=== PATIENT | male | born 1985 | race Two or more races ===

== ENCOUNTER 2020-03-27 10:53 | Outpatient (REF) | payer OTHER, SELFPAY | END 2020-03-27 10:54 | disposition home or self-care (01) | LOC: HO.LAB 10:53 | PROVIDERS: Visit Provider Internal Medicine | DX: Z20.828 Contact with and (suspected) exposure to other viral communicable diseases (principal) | CPT/HCPCS: C9803; U0003 ==

== ENCOUNTER 2020-09-22 17:11 | Emergency (ER) | payer OTHER, SELFPAY ==
--- NOTE | ~2020-09-22 | US_ITS ---
EXAMINATION: US VENOUS ULTRASOUND WITH DOPPLER LOWER EXTREMITY, RIGHT CLINICAL INFORMATION: Pain and swelling. COMPARISON: None TECHNIQUE: Ultrasound of the deep veins is performed from the hip to the calf with compression sonography and color and pulse Doppler assessment. Spectral analysis with color-flow imaging is performed. FINDINGS: There is normal venous compression and respiratory variation and augmented flow. The visualized common femoral vein, superficial femoral vein, profunda femoral vein, popliteal vein, and the trifurcation region shows no evidence of deep venous thrombosis. There is no significant popliteal fossa cyst. If the patient's symptoms persist, followup ultrasound in 5 days 7 days might be of value to exclude proximal propagation from a non-visualized calf vein. US/US venous duplex LE RT IMPRESSION: No DVT demonstrated in the right lower extremity.
[2020-09-22 19:30] VITALS: BP 124/83; PULSE 64; RESP 16; TEMP 36.4; O2SAT 98; BMI 37.5
--- NOTE | 2020-09-22 19:39 | ED.LOWEXIN ---
HPI - Extremity Injury (Lower) General Chief Complaint: Extremity Injury, Lower Stated Complaint: leg pain Time Seen by Provider: 09/22/20 19:38 Source: patient Mode of arrival: ambulatory Limitations: no limitations History of Present Illness HPI Narrative: 35 you male c/o R calf pain since Tuesday after walking [employer] and feeling a pull since then painful to walk no other injuries MD complaint: leg injury Onset (ago): day(s) (3) Type of Injury: unknown Place: other ([facility]) Severity: moderate Relieving factors: nothing Exacerbating factors: weight bearing and movement Context: walking and other Associated symptoms: snap/pop sensation Other symptoms: none Related Data Allergies Allergy/AdvReac Type Severity Reaction Status Date / Time No Known Allergies Allergy Unverified 09/22/20 19:34 [No Known Allergies*] Review of Systems Review of Systems: Constitutional : No Weight loss, No Fever ENT/Mouth : No sore throat, No Rhinorrhea Eyes: No Eye Pain, No Swelling, No Redness Cardiovascular : No Chest Pain, No SOB Respiratory : No Cough, No Sputum Gastrointestinal : No Nausea, No Vomiting Genitourinary : No Dysuria, No Urinary Frequency Musculoskeletal : No joint pain, No Myalgias, No Joint Swelling, pos calf pain Skin : No Skin Lesions, No rash Neuro : No Weakness, No Numbness, No Dizziness, No Headache Psych : No Anxiety/Panic, No Depression PMFSH Past Medical History Attestation statement: The following information was validated with the patient. Medical History No known health problems Social History Social History (Updated 09/22/20 @ 20:13 by Lashay Benites DO) Patient Tobacco Use Status: Never used Tobacco Use of substances other than those prescribed or required for medical reasons: No Advance Directives: No Advance Directives Information Provided: No Physical Exam Vital Signs: Vital Signs: Last Vital Signs Temp 97.5 F 09/22/20 19:30 Pulse 64 09/22/20 19:30 Resp 16 09/22/20 19:30 BP 124/83 09/22/20 19:30 Pulse Ox 98 09/22/20 19:30 Body Mass Index 37.5 Appearance: Alert. Oriented X3. No acute distress. Eyes: Pupils equal, round and reactive to light. ENT: Pharynx normal. Neck: Normal inspection. Neck supple. CVS: Normal heart rate and rhythm. Pulses normal. Respiratory: No respiratory distress. Breath sounds normal. Abdomen: Soft and nontender. Skin: Skin warm and dry. Normal skin color. Normal skin turgor. Extremities:+ R calf pain, NV intact, mild swelling noted in calf area, distal NV intact, + pearl test - achilles intact Neuro: Oriented X 3. No motor deficit. No sensory deficit. Course Course Course Narrative: signed out to Dr. Ashraf pending US MDM - Extremity Injury (Lower) MDM Narrative Medical decision making narrative: 35 yo male with R calf pain post feeling a pop while walking achilles is intact - no pain with axial loading, doubt fracture, NV intact, US to evaluate for DVT at this time, aware he will need to see PCP if this worsens for MRI Discharge Plan Discharge Clinical Impression: Muscle strain
[2020-09-22] MEDS: Cyclobenzaprine HCl 10 MG TABLET PO (19:55)
[2020-09-22] MEDS: Ketorolac Tromethamine 60 MG/2 ML VIAL IM (19:56)
[2020-09-22 21:28] VITALS: RESP 16
[2020-09-22 21:30] VITALS: BP 123/83; PULSE 70; RESP 18; TEMP 37; O2SAT 97
== END 2020-09-22 22:11 | disposition home or self-care (01) ==
PROVIDERS: Emergency Provider Internal Medicine
DX: S86.911A Strain of unspecified muscle(s) and tendon(s) at lower leg level, right leg, initial encounter (principal); X58.XXXA Exposure to other specified factors, initial encounter; M79.661 Pain in right lower leg; R22.41 Localized swelling, mass and lump, right lower limb; Y93.01 Activity, walking, marching and hiking; Y92.512 Supermarket, store or market as the place of occurrence of the external cause; Y99.9 Unspecified external cause status
CPT/HCPCS: 93971; 96372; 99283; 99284; J1885

== ENCOUNTER 2021-05-20 05:21 | Emergency (ER) | payer OTHER, SELFPAY ==
[2021-05-20 06:27] VITALS: BP 114/68; PULSE 97; RESP 14; TEMP 37.2; O2SAT 95
[2021-05-20 06:28] VITALS: BP 127/59; PULSE 84; RESP 16; TEMP 37.3; O2SAT 94; BMI 38.0
--- NOTE | 2021-05-20 06:40 | ED_ITS ---
HPI - General Adult General Chief complaint: General Medical Stated complaint: Headache Time Seen by Provider: 05/20/21 06:24 Source: patient Mode of arrival: ambulatory History of Present Illness HPI narrative: 35-year-old male with history of migraines and states he has received his COVID- 19 vaccination (Moderna) and now presents with few days subjective fever, chills, sore throat but denies any dry cough and states he also has a headache. He says that this is not than normal course for his migraines but otherwise denies any shortness of breath/chest pain/palpitations. He does report some mild dizziness. Related Data Previous Rx's Medication Instructions Recorded ibuprofen 600 mg tablet 600 mg PO Q6H PRN #20 tab 09/22/20 Allergies Allergy/AdvReac Type Severity Reaction Status Date / Time No Known Allergies Allergy Unverified 09/22/20 19:34 [No Known Allergies*] Review of Systems Verdana 4l Review of Systems: Verdana 4d Pertinent positives and Verdana 4d negatives as stated in HPI 10 point review of systems is otherwise negative. Verdana 4d PMFSH Past Medical History Source: nursing notes reviewed Medical History No known health problems Social History Social History Patient Tobacco Use Status: Never used Tobacco Advance Directives: No Advance Directives Information Provided: No Physical Exam Verdana 4l Vital Signs: Verdana 4d Verdana 4d Vital Signs: Verdana 4d Verdana 4Bd Last Vital Signs Verdana 4d Health Service Coordinator New 4d Health Service Coordinator New 4d Temp 99.2 F 05/20/21 06:28 Health Service Coordinator New 4d Pulse 84 05/20/21 06:28 Health Service Coordinator New 4d Resp 16 05/20/21 06:28 BP 127/59 L 05/20/21 06:28 Pulse Ox 94 05/20/21 06:28 BMI result Body Mass Index 38.0 VITAL SIGNS: Reviewed. GENERAL: Well developed, well nourished, in no acute distress. HEAD: Normocephalic/atraumatic EYES: PERRLA, EOMI EARS: Ext canals without abnormality, TMs non-bulging and non-erythematous NOSE: Nares patent bilateral OROPHARYNX: no oral lesions noted, posterior pharynx erythematous with noted tonsillar erythema but no enlargement or exudates NECK: Supple, no adenopathy LUNGS: Normal breath sounds. No adventitious sounds or accessory muscle use. SpO2<94> CARDIOVASCULAR: Regular rate and rhythm without noted murmurs ABDOMEN: Soft, non-tender, non-distended with bowel sounds. SKIN: Inspection of the skin reveals no rashes NEUROLOGIC: Alert and oriented x 4. Strength and sensation to light touch were grossly intact x 4. Course Course Course Narrative: 35-year-old male with history and clinical presentation consistent with viral syndrome as this headache is different in character from his previous but there are no focal deficits that raise concerns for neurologic etiology. Will perform COVID testing as well as strep testing and provided combination analgesics. Signed out to Dr Ortega: f/u headache/ viral testing. Discharge Plan Discharge Clinical Impression: Viral syndrome Patient Disposition: Still a Patient Prescriptions: No Action ibuprofen 600 mg tablet 600 mg PO Q6H PRN (Reason: pain) Qty: 20 0RF
[2021-05-20 06:52] LABS: Strep A Nucleic Acid Negative (Negative)
[2021-05-20 06:54] LABS: COVID-19 Test Positive (Negative); IDNOW Serial# 55D5AD1C
[2021-05-20] MEDS: Acetaminophen 325 MG TABLET 975 MG PO (07:08)
[2021-05-20] MEDS: Ibuprofen 400 MG TABLET PO (07:08)
== END 2021-05-20 07:25 | disposition home or self-care (01) ==
PROVIDERS: Student in an Organized Health Care Education/Training Program; Emergency Provider Emergency Medicine
DX: U07.1 COVID-19 (principal); B34.9 Viral infection, unspecified; R51.9 Headache, unspecified
CPT/HCPCS: 36415; 87635; 87651; 99283; 99284

== ENCOUNTER 2024-01-04 10:04 | Emergency (ER) | payer OTHER, SELFPAY ==
--- NOTE | ~2024-01-04 | XR_ITS ---
EXAMINATION: XR RIGHT ELBOW XR RIGHT HUMERUS CLINICAL INFORMATION: Status post fall. COMPARISON: None available. TECHNIQUE: 2 views of the chest were obtained. FINDINGS: Alignment is anatomic. Joint spaces are maintained. No displaced fracture or dislocation. No significant joint effusion. Small olecranon spur. Mild posterior soft tissue swelling. XR/XR elbow RT 2V IMPRESSION: No acute abnormality. Electronically signed by: Dontrell Rosales MD 01/04/2024 12:16 PM EDT
--- NOTE | ~2024-01-04 | XR_ITS ---
EXAMINATION: XR RIGHT ELBOW XR RIGHT HUMERUS CLINICAL INFORMATION: Status post fall. COMPARISON: None available. TECHNIQUE: 2 views of the chest were obtained. FINDINGS: Alignment is anatomic. Joint spaces are maintained. No displaced fracture or dislocation. No significant joint effusion. Small olecranon spur. Mild posterior soft tissue swelling. XR/XR humerus RT IMPRESSION: No acute abnormality. Electronically signed by: Dontrell Rosales MD 01/04/2024 12:16 PM EDT
[2024-01-04 10:07] VITALS: BP 138/85; PULSE 78; RESP 18; TEMP 36.6; O2SAT 96; BMI 36.0
--- NOTE | 2024-01-04 12:10 | ED_ITS ---
HPI - Extremity Problem General Chief complaint: Extremity Injury, Upper Stated complaint: r arm inj Time Seen by Provider: 01/04/24 12:10 Source: patient Mode of arrival: ambulatory Limitations: no limitations History of Present Illness ED Provider: Corine Murray PA-C HPI Narrative: Patient is a 38 year old assigned male at with no reported medical history presenting to the emergency department today with right elbow and upper arm pain. Patient states that he was working on the roof when he fell down onto the roof. Patient states that his right elbow hurts and it radiates into his upper arm. Patient states that it is worse when he raises his right arm. Patient denies any dizziness, lightheadedness, abdominal pain, nausea, vomiting, fever, chills, blurry vision, double vision, loss of vision, chest pain, difficulty breathing, shortness of breath, back pain, night sweats, pain with urination, increased urinary frequency, increased urinary urgency, blood in his urine or s tool, syncope or a near syncopal episode, bowel incontinence, bladder incontinence, or any other complaints at this time. MD Complaint: extremity pain Location: right and upper extremity Relieving factors: immobilization Exacerbating factors: range of motion Associated symptoms: denies other symptoms Related Data Previous Rx's ?Medication ?Instructions ?Recorded ibuprofen 600 mg tablet 600 mg PO Q6H PRN pain #20 tabs 09/22/20 Allergies Allergy/AdvReac Type Severity Reaction Status Date / Time No Known Allergies Allergy Verified 01/04/24 10:09 [No Known Allergies*] Review of Systems Constitutional: Constitutional: Reports no additional constitutional complaints, Denies chills, Denies fever(s) and Denies night sweats Eyes: Eyes: Reports no additional eye complaints, Denies blurry vision, Denies change in vision, Denies diplopia, Denies eye discharge, Denies loss of vision and Denies eye pain ENT: Denies dizziness Cardiovascular: Cardiovascular: Reports no additional cardiovascular complaints, Denies chest pain, Denies lightheadedness, Denies Loss of Consciousness and Denies dyspnea Respiratory: Respiratory: Reports no additional respiratory complaints and Denies dyspnea Gastrointestinal: Gastrointestinal: Reports no additional gastrointestinal complaints, Denies abdominal pain, Denies melena, Denies hematochezia, Denies change in bowel habits and Denies change in stool character Genitourinary: Genitourinary: Reports no additional male genitourinary complaints, Denies hematuria, Denies oliguria, Denies difficulty urinating, Denies dysuria, Denies urinary frequency, Denies urinary hesitancy, Denies urinary incontinence and Denies urinary urgency Musculoskeletal: Musculoskeletal: Reports no additional musculoskeletal complaints, Denies numbness and Denies tingling Comments: right elbow pain Neurologic: Denies dizziness, Denies loss of vision, Denies numbness and Denies tingling Psychiatric: Psychiatric: Reports no additional psychiatric complaints Endocrine: Endocrine: Reports no additional endocrine complaints Hematologic/Lymphatic: Hematologic/Lymphatic: Reports no additional hematologic/lymphatic complaints Allergic/Immunologic: Allergic/Immunologic: Reports no additional allergic/im munologic complaints [facility] Past Medical History Attestation statement: The following information was validated with the patient. Source: old records reviewed and nursing notes reviewed Medical History No known health problems Social History Social History Patient Tobacco Use Status: Never used Tobacco Advance Directives: No Advance Directives Information Provided: No Do you have a plan to hurt others: No Plan Physical Exam Vital Signs: Vital Signs: Last Vital Signs Temp 97.9 F 01/04/24 12:33 Pulse 78 01/04/24 12:33 Resp 18 01/04/24 12:33 BP 138/85 01/04/24 12:33 Pulse Ox 96 01/04/24 12:33 O2 Del Method Room Air 01/04/24 12:33 BMI result Body Mass Index 36.0 Const: General: cooperative, no acute distress, alert and awake Nutritional Appearance: well nourished Orientation/consciousness: patient oriented x3 Limitations: no limitations HEENT: Head: Yes normal to inspection and Yes atraumatic Ears: hearing grossly normal bilaterally and external ears normal General nose exam: Normal external nose present, no nasal discharge noted and no epistaxis Face and sinus: Yes normal facial exam, No abrasion and No laceration Mouth: Normal oral and palatal mucosa present, no drooling and no muffled voice Eyes: General: appearance normal, both eyes and all related structures Periorbital: periorbital findings normal Eyelids: Yes eyelids normal Conjunctivae: conjunctivae normal Pupils: Equal, round and reactive pupils present EOM: EOMs intact bilaterally Neck: Neck: Yes normal visual inspection, Yes full ROM and Yes no lymphadenopathy Chest: Chest palpation & inspection: normal inspection of the chest Resp: Effort & Inspection: normal respiratory effort and able to speak in complete sentences GI: Inspection: Yes normal to inspection Neuro: General: patient oriented x3 and moves all extremities Cranial nerves: Yes Equal, round and reactive pupils present Cognition (Neuro): normal cognition Extrem: Other: pain with right elbow and shoulder ROM General: Yes normal to inspection, Yes full ROM and Yes capillary refill normal Psych: Appearance: grossly normal Mental Status: mental status grossly normal Affect: normal affect Attitude: cooperative Thought process: Normal thought process present Thought content: Normal thought content present Insight: Good insight present (Psych) Medical Decision Making Medical Decision Making MDM Narrative: Patient is a 38 year old assigned male at with no reported medical history presenting to the emergency department today with right elbow and upper extremity pain. Patient's physical exam showed pain with right elbow and upper arm ROM - possible tricep injury. Patient's right elbow and humerus x-rays showed no acute process. I explained my physical exam findings as well as all test results to the patient. I answered all questions asked by the patient. I stressed the importance of the patient taking his medication as directed (either prescribed or as the over the counter packaging recommends). I stressed the importance of the patient following up with his primary care provider and an orthopedic provider. I stressed the importance of the patient returning to the emergency department immediately if his symptoms were to worsen or if he were to develop any dizziness, shortness of breath, difficulty breathing, chest pain, blurry vision, loss of vision, nausea, vomiting, abdominal pain, fever, chills, back pain, or any other complaints. Patient verbalized agreement and understanding with this treatment plan and discharge. Differential Diagnosis Differential Diagnoses: The differential diagnosis associated with the presentation includes Elbow sprain Elbow pain Elbow strain Rotator cuff injury Tricep injury Admission/Observation Consideration of admission/observation: Escalation of care including admission/observation considered Patient would have been admitted to the hospital had his work up had any findings where hospital admission was appropriate and his clinical presentation warranted hospital admission. Independent Interpretation I performed an independent interpretation of an: Plain X-Ray Interpretation: My interpretation is in agreement with the radiologist's impression of these imaging studies. EXAMINATION: XR RIGHT ELBOW XR RIGHT HUMERUS CLINICAL INFORMATION: Status post fall. COMPARISON: None available. TECHNIQUE: 2 views of the chest were obtained. FINDINGS: Alignment is anatomic. Joint spaces are maintained. No displaced fracture or dislocation. No significant joint effusion. Small olecranon spur. Mild posterior soft tissue swelling. XR/XR humerus RT IMPRESSION: No acute abnormality. Electronically signed by: Dontrell Rosales MD 01/04/2024 12:16 PM EDT RP Dictated By: Alyssa Rosales MD Signed By: Electronically signed by Alyssa Rosales MD 01/04/24 1216 Radiology Impression Discussion of test interpretation with radiology: I have reviewed the ra diologist's reading. Discharge Plan Discharge Clinical Impression: Elbow sprain, Contusion of elbow, Fall Patient Disposition: Home, Self-Care Instructions: Contusion in Adults (ED), Elbow Sprain (ED), R.I.C.E. Treatment (ED), Fall Prevention (ED) Additional Instructions: Follow up with your primary care provider, an orthopedic provider, and work connection. Return to the emergency department immediately if your symptoms worsen or if you develop any dizziness, shortness of breath, difficulty breathing, chest pain, blurry vision, loss of vision, nausea, vomiting, abdominal pain, fever, chills, back pain, or any other complaints. Prescriptions: No Action ibuprofen 600 mg tablet 600 mg PO Q6H PRN (Reason: pain) Qty: 20 0RF Referrals: [facility] [Provider Group] (Call to establish and follow up with a primary care provider. If you already have a primary care provider, please follow up with them.) [facility] [Provider Group] (Call to establish and follow up with a primary care provider. If you already have a primary care provider, please follow up with them.) [facility] [Provider Group] (Call to establish and follow up with a primary care provider. If you already have a primary care provider, please follow up with them.) [facility] [Provider Group] (Call to establish and follow up with an orthopedic provider.) [facility] [Provider Group] (Given this was a work place injury, you should follow up with work connection.) Stand Alone Forms: Work/School Release Interventions: ED Discharge Assessment Last Done: 01/04/24 12:33 Discharge Date/Time: 01/04/24 12:33 Print Language: Romansh
[2024-01-04 12:33] VITALS: BP 138/85; PULSE 78; RESP 18; TEMP 36.6; O2SAT 96
== END 2024-01-04 12:33 | disposition home or self-care (01) ==
PROVIDERS: Emergency Provider Emergency Medicine Emergency Medical Services
DX: S53.401A Unspecified sprain of right elbow, initial encounter (principal); W18.39XA Other fall on same level, initial encounter; Y93.89 Activity, other specified; Y92.89 Other specified places as the place of occurrence of the external cause; Y99.0 Civilian activity done for income or pay
CPT/HCPCS: 73060; 73070; 99282; 99283

== ENCOUNTER 2024-01-26 14:47 | Outpatient (AMB) | payer OTHER, SELFPAY ==
--- NOTE | 2024-01-26 14:51 | A.OFFVIS_ITS ---
Vital Signs 01/26/24 14:56 Height 5 ft 7 in Weight 230 lb BMI 36.0 Intake Visit Reasons: ED f/u rt Elbow sprain Intake Note: All a 38 year old male who presents today for an ER follow to evaluate a WC injury to his right elbow, DOI 01/04/24. Patient reports while on a metal roof at work he fell hitting his elbow on a ridge. He presented to [facility] ER where xrays were taken and referred to orthopedics. He has a visible lump and complains of pain with certain twisting motions. He has numbness and tingling with sleeping. He is requesting an MRI. Patient is currently working light duty at work. Allergies No Known Allergies [No Known Allergies*] Allergy (Verified 01/26/24 14:55) Medication List - Last Reconciled 01/26/24 by Tripp Hamilton PA-C No Known Home Meds HPI HPI ED f/u rt Elbow sprain: Details: 38-year-old male who presents to the office today for an ED follow-up of right elbow work injury, 01/04/24. He reports he was on a metal roof at work when he fell hitting his elbow on a ridge. He was seen at ER where x-rays were performed and he was referred to our office. He reports he has a visible lump and pain in his elbow that comes with bending as well as with certain motions. He also experiences numbness and tingling with sleeping. He has been working light duty at work. 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 Review of Systems Const All systems reviewed & are unremarkable except as noted in HPI and below Physical Exam Vital Signs: BMI result Body Mass Index 36.0 Const General: cooperative, healthy appearing, comfortable, no acute distress, well developed and alert Orientation/consciousness: patient oriented x3 HEENT Head: Yes normal to inspection, Yes normocephalic and Yes atraumatic Eyes General: appearance normal, both eyes and all related structures Resp Effort & Inspection: normal respiratory effort and able to speak in complete sentences Cardio Rate: regular rate Peripheral pulses: Peripheral pulses 2+ throughout GI Palpation (GI): Soft to palpation Skin Lesions: no lesions Rashes: no rashes Neuro General: patient oriented x3 Extrem Other: Right elbow: Normal to inspection. He has full flexion but with extension he has discomfort along the triceps. No pain with supination or pronation. He has significant tenderness along the triceps tendon and weakness with activation of triceps. NVI. Results Reviewed Results Reviewed: XR elbow RT 2V 01/04/24 IMPRESSION: No acute abnormality. Assessment & Plan Assessment & Plan (1) Other injury of muscle, fascia and tendon of triceps, right arm, initial encounter: Code(s): S46.391A - Other injury of muscle, fascia and tendon of triceps, right arm, initial encounter Category: Medical Plan An MRI of the right elbow was ordered to further evaluate the triceps and surrounding structures. He will continue light duty at work and once the scan is complete, we will contact him to determine the next step in his treatment. All questions were answered today. Orders: Orders MR elbow RT wo con Today S46.391A - Other injury of muscle, fascia and tendon of triceps, right arm, initial encounter, S50.00XA - Contusion of unspecified el bow, initial encounter Medications: Discontinued ibuprofen Discontinued Reason: Patient no longer taking 600 mg PO Q6H PRN 20 tabs 0RF pain Patient Instructions: Scribed for Tripp Hamilton PA-C, by Dorian Meneses medical engineer, on 01/26/2024 at 3:00 PM EST.? I, Tripp Hamilton PA-C, have personally reviewed and agree with the information entered by the scribe. Coding Level of Care Code New Pt Level 3 (27206) Complex EM visit Add On G2211 Diagnoses Other injury of muscle, fascia and tendon of triceps, right arm, initial encounter S46.391A
[2024-01-26 14:56] VITALS: BMI 36.0
== END 2024-01-26 15:31 | disposition home or self-care (01) ==
PROVIDERS: Visit Provider Physician Assistant
DX: S46.391A Other injury of muscle, fascia and tendon of triceps, right arm, initial encounter (principal)
CPT/HCPCS: 99203; G2211

== ENCOUNTER → 2024-01-26 14:47 | Outpatient (BNVA) | payer OTHER, SELFPAY | PROVIDERS: Visit Provider Physician Assistant | DX: S46.391A Other injury of muscle, fascia and tendon of triceps, right arm, initial encounter (principal) | CPT/HCPCS: 99202 ==

== ENCOUNTER 2024-02-03 19:27 | Outpatient (REF) | payer OTHER, SELFPAY ==
--- NOTE | ~2024-02-03 | MR_ITS ---
EXAMINATION: MR ELBOW WITHOUT CONTRAST, RIGHT CLINICAL INFORMATION: Pain with weightbearing and throwing. Elbow contusion. COMPARISON: Right elbow radiographs dated 01/04/2024. TECHNIQUE: MRI of the elbow was performed using routine sequences on a high-field scanner. FINDINGS: Ulnar Collateral Ligament: Mildly increased T2 signal within the proximal aspect of the ulnar collateral ligament with minimally increased adjacent T2 signal, which could represent normal variation versus a grade 1 sprain. Common Flexor Tendon: Minimally increased T2 signal associated with common flexor tendon, consistent with minimal tendinosis. No tendon tear. Radial Collateral Ligament: Intact. Common Extensor Tendon: Intact. Biceps/Triceps Tendon: Thickening and heterogeneity with increased T2 signal involving the distal 1.7 cm of the biceps tendon, consistent with tendinosis. There is partial thickness undersurface partial tearing measuring 1.1 cm involving approximately 50% of the tendon thickness. No full-thickness transverse tendon tear or tendon retraction. The brachialis tendon is intact. Full-thickness partial tear involving the peripheral aspect of the distal triceps tendon (lateral and longitudinal head) with retraction of the torn tendon fibers. The resultant tendon gap measures up to 4.3 cm with adjacent edema and fluid extending proximally beyond the image [id number] along the myotendinous junction. Overlying soft tissue swelling. Articular Cartilage/Bone: No acute fracture or dislocation. Intact articular cartilage. No marrow edema. No osteochondral lesion. Ulnar Nerve: Intact. Joint Fluid/Soft Tissues: Dorsal subcutaneous edema. No significant joint effusion. MR/MR elbow RT wo con IMPRESSION: 1. Full-thickness partial tear involving the peripheral aspect of the distal triceps tendon (lateral and longitudinal head) with retraction of the torn tendon fibers measuring up to 4.3 cm. Adjacent edema and fluid extending proximally beyond the image [id number] along the myotendinous junction. 2. Distal biceps tendinosis with undersurface partial tearing measuring 1.1 cm involving approximately 50% of the tendon thickness. No full-thickness transverse tendon tear or tendon retraction. 3. Minimal common flexor tendinosis without a measurable tendon tear. 4. Possible grade 1 sprain of the ulnar collateral ligament. 5. Dorsal subcutaneous edema. Electronically signed by: Peter Smith MD 02/03/2024 08:59 PM EDT
== END 2024-02-03 19:28 | disposition home or self-care (01) ==
LOC: HO.MRI 19:27
PROVIDERS: Visit Provider Physician Assistant
DX: S50.00XA Contusion of unspecified elbow, initial encounter (principal); S46.391A Other injury of muscle, fascia and tendon of triceps, right arm, initial encounter
CPT/HCPCS: 73221

== ENCOUNTER 2024-02-13 14:07 | Outpatient (AMB) | payer OTHER, SELFPAY ==
--- NOTE | 2024-02-13 14:24 | MHC.OFFVIS ---
Vital Signs 02/13/24 14:26 Height 5 ft 7 in Weight 230 lb BMI 36.0 Intake Visit Reasons: EP, R elbow MRI follow up Intake Note: All is a 38 year old righto hand dominant male who presents to the office today for right elbow MRI follow up. Patient reports that he is doing well and only has pain with weighted flexion of the arm. Allergies No Known Allergies [No Known Allergies*] Allergy (Verified 01/26/24 14:55) HPI HPI EP, R elbow MRI follow up: Details: 38-year-old right hand dominant male who returns to the office today for an MRI review of right elbow. He states he has pain and weakness that comes with weighted flexion of the arm which is significantly impacting his ability to perform him work and daily activities. 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 Review of Systems Const All systems reviewed & are unremarkable except as noted in HPI and below Physical Exam Vital Signs: BMI result Body Mass Index 36.0 Const General: cooperative, healthy appearing, comfortable, no acute distress, well developed and alert Orientation/consciousness: patient oriented x3 HEENT Head: Yes normal to inspection, Yes normocephalic and Yes atraumatic Eyes General: appearance normal, both eyes and all related structures Resp Effort & Inspection: normal respiratory effort and able to speak in complete sentences Cardio Rate: regular rate Peripheral pulses: Peripheral pulses 2+ throughout GI Palpation (GI): Soft to palpation Skin Lesions: no lesions Rashes: no rashes Neuro General: patient oriented x3 Extrem Other: Right elbow: Normal to inspection. He has full flexion but with extension he has discomfort along the triceps. No pain with supination or pronation. He has significant tenderness along the triceps tendon and weakness with activation of triceps. NVI. Results Reviewed Results Reviewed: MR elbow RT wo con IMPRESSION: 1. Full-thickness partial tear involving the peripheral aspect of the distal triceps tendon (lateral and longitudinal head) with retraction of the torn tendon fibers measuring up to 4.3 cm. Adjacent edema and fluid extending proximally beyond the image [id number] along the myotendinous junction. 2. Distal biceps tendinosis with undersurface partial tearing measuring 1.1 cm involving approximately 50% of the tendon thickness. No full-thickness transverse tendon tear or tendon retraction. 3. Minimal common flexor tendinosis without a measurable tendon tear. 4. Possible grade 1 sprain of the ulnar collateral ligament. 5. Dorsal subcutaneous edema Assessment & Plan Assessment & Plan (1) Rupture of right triceps tendon: Code(s): S46.311A - Strain of muscle, fascia and tendon of triceps, right arm, initial encounter Category: Medical Plan I reviewed the case with Dr. Rojas who was available to see the patient with me today, we explained the extent of the injury and options to the patient which includes repair of the triceps tendon. I did explain to him that this takes anywhere from 6-12 weeks to fully recover from as there needs to be a period of immobilization and then potential physical therapy. It is ideal to perform surgery within the next few days as the injury is already a week out and we want to prevent further retraction or scarring which could jeopardize the success of the surgery. I discussed with him the risks, benefits and alternatives to the procedure.? Risks including, but not limited to infection, re-rupture of the tendon, stiffness, chronic pain.? He does understand all this and would like to proceed with right triceps tendon repair with Dr. Rojas.? He will be booked accordingly. Patient Instructions: Scribed for Tripp Hamilotn PA-C, by Dorian Meneses medical appliance maker, on 02/13/2024 at 2:15 PM EST.? I, Tripp Hamilton PA-C, have personally reviewed and agree with the information entered by the scribe. Coding Level of Care Code Est Pt Level 4 (49895) Complex EM visit Add On G2211 Diagnoses Rupture of right triceps tendon S46.311A
[2024-02-13 14:26] VITALS: BMI 36.0
== END 2024-02-13 16:08 | disposition home or self-care (01) ==
PROVIDERS: Visit Provider Physician Assistant
DX: S46.311A Strain of muscle, fascia and tendon of triceps, right arm, initial encounter (principal)
CPT/HCPCS: 99214; G2211

== ENCOUNTER → 2024-02-13 14:07 | Outpatient (BNVA) | payer OTHER, SELFPAY | PROVIDERS: Visit Provider Physician Assistant | DX: S46.311A Strain of muscle, fascia and tendon of triceps, right arm, initial encounter (principal) | CPT/HCPCS: 99212 ==

== ENCOUNTER 2024-02-21 07:58 | Day surgery (SDC) | payer OTHER, SELFPAY ==
--- NOTE | 2024-02-20 08:45 | HO.ANESPROP2 ---
Documented by User: Nancy Bell NP 02/20/24 08:45 HPI - Anesthesia Eval Consult details Narrative: 38yo M for Right Tricep Tendon Repair with Collegen Patch PMFSH Active Problems Active Problems: All Active Problems Rupture of right triceps tendon (Acute) Other injury of muscle, fascia and tendon of triceps, right arm, initial encounter (Acute) Past Medical History Medical History No known health problems Surgical History Surgical History [place] teeth extracted Social History Social History Patient Tobacco Use Status: Never used Tobacco Have you been hit, kicked, punched, or otherwise hurt by someone within the past year? 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 Meds Allergies Allergy/AdvReac Type Severity Reaction Status Date / Time No Known Allergies Allergy Verified 01/26/24 14:55 [No Known Allergies*] Home Medications ?Medication ?Instructions ?Recorded ?Confirmed ?Last Taken ?Type No Known Home Meds 01/26/24 02/21/24 Unknown History Assessment and Plan Assessment Anesthesia Assessment: Chart Reviewed Documented by User: Rose Copeland MD 02/21/24 10:45 PMFSH Active Problems Active Problems: All Active Problems Rupture of right triceps tendon (Acute) Other injury of muscle, fascia and tendon of triceps, right arm, initial encounter (Acute) Increased BMI Snores but no diagnosis of HIREN Past Medical History Medical History No known health problems Family History Family history of problems with anesthesia: No Surgical History Surgical History [place] teeth extracted History of Problems with Anesthesia: No Social History Social History Patient Tobacco Use Status: Never used Tobacco Have you been hit, kicked, punched, or otherwise hurt by someone within the past year? 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 Denies broken or loose teeth) Heart: RRR Lungs: CTAB Assessment and Plan Assessment Anesthesia Assessment: Anesthesia Plan Discussed and Chart Reviewed Final Anesthetic Review Family History of Problems with Anesthesia: No History of Problems with Anesthesia: No NPO: Yes ASA Class: II Final Preanesthetic Review: No Changes in Pt Med Stat, Meds/Allgs Chart Reviewed, Consent Obtained/Reviewed and Anes Risks/Benef Reviewed Patient Risk: Low Procedure Risk: Low Assessment/Block/Sedation in SS: Assess/Block/Sedation-SS Anesthetic Plan Anesthetic Plan: GA and Other (Brachial plexus nerve block) Disposition: Standard PACU
[2024-02-21] VITALS (8 sets, daily range): BP systolic 117–147; BP diastolic 69–93; PULSE 79–88; RESP 10–20; TEMP 36.1–36.9; O2SAT 93–97; BMI 36.1; BMI 38.3
[2024-02-21] MEDS: Lactated Ringers 1,000 ML 100 ML IVCONT (08:35)
--- NOTE | 2024-02-21 09:24 | MHC.SHP ---
Pre-Procedural Eval Section A - 24 Hr Update-Section A only Date of Service: 02/21/24 The patient is an INPATIENT: No Changes since office visit: No Cold of Flu in the past 2 weeks, No New Medical Problems, No Changes in Medication and No Patient answered all questions The patient has been examined within 24 hours of the surgical procedure. The History & Physical has been completed within 30 days and I have reviewed it.: Yes Section B - Complete if H&P > 30 days Chief Complaint: Laceration of muscle, fascia and tendon of triceps Allergies: Allergies Allergy/AdvReac Type Severity Reaction Status Date / Time No Known Allergies Allergy Verified 01/26/24 14:55 [No Known Allergies*] Plan I have reviewed the history and physical and performed a pertinent physical examination on my patient. No changes have occurred unless specified. Time Spent With Patient Time: Total time managing care of this patient today ____ minutes.
--- NOTE | 2024-02-21 14:06 | PM.OP ---
Brief Operative Note Date of Service: 02/21/24 Pre-op diagnosis: Right triceps rupture Post-op diagnosis: same Procedure: Right triceps repair Implants: Ventura and Nephew Q-fix 2.8 all suture single loaded anchor x 2 Footprint, 3.5 x 2 Regeneten large bioinductive implant x 1 Surgeon: Adalberto Rojas MD Anesthesia: GETA and regional Was an Patient Access Manager used for this Procedure?: Yes Patient Access Manager: Tripp Hamilton Estimated blood loss (mL): 100 IV fluids (mL): 1,000 Pathology: none sent Condition: stable Disposition: PACU
--- NOTE | 2024-02-24 16:27 | W.PM.OPN ---
Operative Note Operative Note Date of Service: 02/21/24 Narrative: Date of Service: 02/21/24 Pre-op diagnosis: Right triceps rupture Post-op diagnosis: same Procedure: Right triceps repair Implants: Ventura and Nephew Q-fix 2.8 all suture single loaded anchor x 2 Footprint, 3.5 x 2 Regeneten large bioinductive implant x 1 Surgeon: Adalberto Rojas MD Anesthesia: GETA and regional Was an Water Resources Technical Officer used for this Procedure?: Yes Water Resources Technical Officer: Tripp Hamilton Estimated blood loss (mL): 100 IV fluids (mL): 1,000 Pathology: none sent Condition: stable Disposition: PACU Patient was brought to the operating room and placed prone on the surgical table. He was prepped and draped in standard sterile fashion and a time out was called to identify proper site, proper procedure and IV antibiotics per weight were administered. We began by making a direct posterior incision over the tip of the olecranon extending proximally 5 cm. I dissected down to the triceps fascia and were encountered significant scarring. There was a palpable retracted portion of his triceps tendon. This was identified and tagged. I was able to pull on this retracted tendon and it had some excursion although was tight. I released fascia and scar tissue proximally and was able to nearly recreate normal attachment site of the triceps. This is a high-grade partial tear. There were portions of the triceps that remained intact mostly medial to the retracted portion. I used a rongeur to debride the olecranon insertion site down to bleeding bone. I then placed 2 Q fix all suture single loaded anchors into the olecranon. One limb of each of these was then stitched in a locking Krackow configuration of proximally and then back through the retracted and torn triceps. I then was able to reapproximate the normal anatomy and brought the triceps down to the debrided bony bed. This was somewhat tight in flexion and so I released it slightly allowing for the patient to obtain full flexion. Once this was done I oversewed the remaining medial and lateral triceps fibers to the repaired triceps. This was done using a 2-0 FiberWire. I then took the elbow through range of motion I was satisfied that I had 0-125 degrees of motion. I then placed a large Regeneten collagen bio inductive implant over the site of injury and subsequent repair. This was held in place with a 2 0 Vicryl suture. I then irrigated and closed with absorbable suture and elizabeth. Sterile dressings were applied. Patient was placed into a sling and approximately 70 degrees of flexion. He was then extubated and brought to recovery in stable condition. There were no known complications.
== END 2024-02-21 16:27 | disposition home or self-care (01) ==
PROVIDERS: Visit Provider Orthopaedic Surgery
PROC: (CPT 24341; principal; 2024-02-21 11:30)
DX: S46.311A Strain of muscle, fascia and tendon of triceps, right arm, initial encounter (principal); X58.XXXA Exposure to other specified factors, initial encounter; Y93.9 Activity, unspecified; Y92.69 Other specified industrial and construction area as the place of occurrence of the external cause; Y99.0 Civilian activity done for income or pay
CPT/HCPCS: 24342; C1713; C1763; J0131; J0665; J0690; J1100; J1171; J2003; J2250; J2405; J2704; J2795; J3010

== ENCOUNTER → 2024-02-21 07:58 | Outpatient (BNV) | payer OTHER, SELFPAY | PROVIDERS: Visit Provider Orthopaedic Surgery | DX: S46.311A Strain of muscle, fascia and tendon of triceps, right arm, initial encounter (principal) | CPT/HCPCS: 24342 ==

== ENCOUNTER 2024-03-01 13:08 | Outpatient (AMB) | payer OTHER, SELFPAY ==
--- NOTE | 2024-03-01 13:13 | A.OFFVIS_ITS ---
Intake Visit Reasons: PO RT tricep tendon repair 02/21/24 NE Intake Note: Todd a 38 year old male who presents today for a post operative visit s/p RT tricep tendon repair 02/21/24 NE. Patient reports he is doing well, he has no pain at the moment. However, he will have an increase of pain with certain movem ents of his arm. Allergies No Known Allergies [No Known Allergies*] Allergy (Verified 03/01/24 13:18) Medication List - Last Reconciled 03/01/24 by Tripp Hamilton PA-C oxycodone 5 mg PO Q4H PRN 7 days HPI HPI PO RT tricep tendon repair 02/21/24 NE: Details: 38-year-old male who returns to the office today for post-op right triceps tendon repair, 02/21/[address] Rojas. He states he has pain with certain arm movement however he is doing well otherwise. He is doing well overall and has no concerns today. 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 He has mild swelling. No drainage. He can flex to 40 degrees, extension to neutral. NVI. Assessment & Plan Assessment & Plan (1) Rupture of right triceps tendon: Code(s): S46.311A - Strain of muscle, fascia and tendon of triceps, right arm, initial encounter Category: Medical Plan He was fit for an elbow ROM brace in the office today. He should wear the brace at all times. He can remove the brace for resting and hygiene. Brace locked in 40 degrees flexion, extension to neutral. He will avoid any type of lifting, pushing, pulling, or carrying greater than a cellphone on the right hand. He will see me back in 1 week for staple removal, sooner if needed. Patient Instructions: Scribed for Tripp Hamilton PA-C, by Dorian Meneses resident medical officer, on 03/01/2024 at 1:30 PM EST.? I, Tripp Hamilton PA-C, have personally reviewed and agree with the information entered by the scribe. Coding Level of Care Code Global (56242) Diagnoses Rupture of right triceps tendon S46.311A
== END 2024-03-01 13:47 | disposition home or self-care (01) ==
LOC: HO.HOS 13:09
PROVIDERS: Visit Provider Physician Assistant
DX: S46.311A Strain of muscle, fascia and tendon of triceps, right arm, initial encounter (principal)
CPT/HCPCS: 99024

== ENCOUNTER → 2024-03-01 13:08 | Outpatient (BNVA) | payer OTHER, SELFPAY | PROVIDERS: Visit Provider Physician Assistant | DX: S46.311D Strain of muscle, fascia and tendon of triceps, right arm, subsequent encounter (principal) | CPT/HCPCS: 99212 ==

== ENCOUNTER 2024-03-08 13:07 | Outpatient (AMB) | payer OTHER, SELFPAY ==
--- NOTE | 2024-03-08 13:26 | MHC.OFFVIS ---
Intake Visit Reasons: PO staple removal Rt Tricep tendon repair 02/21/24 Intake Note: All a 38 year old male who presents today for staple removal s/p RT Tricep tendon repair, DOS 02/21/24. Allergies No Known Allergies [No Known Allergies*] Allergy (Verified 03/08/24 13:26) HPI HPI PO staple removal Rt Tricep tendon repair 02/21/24: Details: 38-year-old male who returns to the office today for post-op right triceps tendon repair, 02/21/24. He reports he has improvement in his swelling however he continues to have limited ROM in his arm. 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 He has mild swelling. No drainage. He can flex to 40 degrees, extension to neutral. NVI. Assessment & Plan Assessment & Plan (1) Rupture of right triceps tendon: Code(s): S46.311A - Strain of muscle, fascia and tendon of triceps, right arm, initial encounter Category: Medical Plan [place] removed today, steri strips applied. An order was placed for occupational therapy to work on active assisted ROM with therapist. He should increase flexion 5 degrees every week for 4 weeks and then increase 10 degrees every week till he reaches full ROM. No lifting at this time. He will remain out of work untill his next appointment. Ideally, the time he should be out of work is 3 months for full recovery. He will see us back in 4 weeks, sooner if needed. Orders: Orders OT Evaluation and Treatment Today S46.311A - Strain of muscle, fascia and tendon of triceps, right arm, initial encounter Patient Instructions: Scribed for Joe-Katlin Hamilton PA-C, by Dorian Meneses nurses medical assistants phlebotomists, on 03/08/2024 at 1:30 PM EST.? I, Tripp Hamilton PA-C, have personally reviewed and agree with the information entered by the scribe. Coding Level of Care Code Global (65215) Diagnoses Rupture of right triceps tendon S46.311A
== END 2024-03-08 14:17 | disposition home or self-care (01) ==
PROVIDERS: Visit Provider Physician Assistant
DX: S46.311A Strain of muscle, fascia and tendon of triceps, right arm, initial encounter (principal)
CPT/HCPCS: 99024

== ENCOUNTER → 2024-03-08 13:07 | Outpatient (BNVA) | payer OTHER, SELFPAY | PROVIDERS: Visit Provider Physician Assistant | DX: S46.311D Strain of muscle, fascia and tendon of triceps, right arm, subsequent encounter (principal) | CPT/HCPCS: 99212 ==

== ENCOUNTER 2024-04-02 14:04 | Outpatient (AMB) | payer OTHER, SELFPAY ==
--- NOTE | 2024-04-02 14:07 | A.OFFVIS_ITS ---
Vital Signs 04/02/24 14:12 Height 5 ft 7 in Weight 230 lb BMI 36.0 Intake Visit Reasons: PO 4wk f/u Rt tricep tendon repair 02/21/24 Intake Note: All a 38 year old male who presents today for his 4 week P/O right Tricep tendon repair, DOS 02/21/24. States he is doing very well,has no pain and is improving working with P.T. Allergies No Known Allergies [No Known Allergies*] Allergy (Verified 04/02/24 14:12) Medication List - Last Reconciled 04/02/24 by Tripp Hamilton PA-C No Known Home Meds HPI HPI PO 4wk f/u Rt tricep tendon repair 02/21/24: Details: 38-year-old male who returns to the office today for post-op right tricep tendon repair, 02/21/24. He states he has no pain and is doing well overall. He has been working on physical therapy as instructed. He has no concerns today. 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 He has full ROM of elbow without pain. He can supinate or pronate without pain. NVI. Assessment & Plan Assessment & Plan (1) Rupture of right triceps tendon: Code(s): S46.311A - Strain of muscle, fascia and tendon of triceps, right arm, initial encounter Category: Medical Plan He will continue working with physical therapy to maintain his ROM and increase strength. He can discontinue the brace when at home and sleeping. He can wear the brace if he is at work or outside in bad weather to protect himself from potentially falling. He will continue with current work light restriction and see me back in 6 weeks, sooner if needed. Patient Instructions: Scribed for Tripp Hamilton PA-C, by Dorian Meneses medical appointment clerk, on 04/02/2024 at 2:15 PM EST.? I, Tripp Hamilton PA-C, have personally reviewed and agree with the information entered by the scribe. Coding Level of Care Code Global (90267) Diagnoses Rupture of right triceps tendon S46.311A
[2024-04-02 14:12] VITALS: BMI 36.0
== END 2024-04-02 14:23 | disposition home or self-care (01) ==
PROVIDERS: Visit Provider Physician Assistant
DX: S46.311A Strain of muscle, fascia and tendon of triceps, right arm, initial encounter (principal)
CPT/HCPCS: 99024

== ENCOUNTER → 2024-04-02 14:04 | Outpatient (BNVA) | payer OTHER, SELFPAY | PROVIDERS: Visit Provider Physician Assistant | DX: S46.311D Strain of muscle, fascia and tendon of triceps, right arm, subsequent encounter (principal) | CPT/HCPCS: 99212 ==

== ENCOUNTER 2024-05-10 15:04 | Outpatient (RCR) | payer OTHER, SELFPAY ==
--- NOTE | 2024-03-27 12:50 | MHC.OT.EP ---
[address] [phone] Occupational Therapy Plan of Care Patient Name: All Garcia Date of Evaluation: 03/27/24 Diagnosis: L distal triceps repair Pain Location: distal triceps Pain Score: 0 Pain Scale Used: Numeric (0 - 10) Aggravating Factors: 1/10 OCCASIONALLY if he extends elbow fully Alleviating Factors: Mild swelling; scar is light pink in color ; fully closed , flat w/ some mobility Assessment: Pt is a 38 yr old L hand dominant male who fell on a roof on 01/04/24 while working. He fell on his triceps. He went to [facility] immediately following the injury you had X-rays nothing was fractured. When pain continued he had an MRI which showed a torn tendon of pt's distal triceps. He had surgery here at [facility] w/ Dr. Rojas on 02/20. 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 Pt was referred to skilled OT therapy to increase AROM, strength, and functional use of his L hand. Pt said he had a follow up w/ the PA last week who gave him permission to decrease use of splint (wearing outside house and at work at all times). He was also given permission to RTW light duty tomorrow (03/28) but w/ restrictions of no heavy lifting and nothing over 10 lbs. Frequency and Duration: The patient will be seen 2xs a week for 6 weeks Short Term Goals: Pt will be compliant w/ his HEP Pt will increase elbow flexion to 125 pain free Pt will be compliant w/ restrictions/ limitations while at work w/ use of his L UE Online Advertising Analyst Goals: Pt will RTW full duty w/out restrictions Pt will report using his L UE to lift and carry 10 lbs w/out difficulty Pt's will have a DASH score less than or equal to 20% Treatment Plan: Therapeutic Exercise Therapeutic Activity Home Exercise Program Splinting Neuro Re-ed Patient Education Desensitization/Sensory Re-ed Edema Control ADL Training Ultrasound NMES Iontophoresis Paraffin Fluidotherapy MHP Cold Packs Joint Mobilization Soft Tissue Mobilization Kinesiotaping Other (see comments) Electronically Signed By: Christin Suazo OTR/L Please Sign and return to therapist. Thank you once again for your referral.
== END 2024-05-11 09:30 | disposition home or self-care (01) ==
LOC: HO.OT 15:04
PROVIDERS: Visit Provider Physician Assistant
DX: S46.311A Strain of muscle, fascia and tendon of triceps, right arm, initial encounter (principal)
CPT/HCPCS: 97110; 97140; 97166; 97535

== ENCOUNTER 2024-05-14 15:00 | Outpatient (AMB) | payer OTHER, SELFPAY ==
--- NOTE | 2024-05-14 15:04 | A.OFFVIS_ITS ---
Intake Visit Reasons: OV- 6wk f/u Rt tricep tendon repair Intake Note: unablt to do push up or pull up. hE has some disocmfort with doing. unable to crawl in an attic. Able ot lift over 10 pounds easily. Allergies No Known Allergies [No Known Allergies*] Allergy (Verified 04/02/24 14:12) Medication List - Last Reconciled 05/14/24 by Tripp Hamilton PA-C No Known Home Meds HPI HPI OV- 6wk f/u Rt tricep tendon repair: Details: 38-year-old gentleman returns to the office today approximately 3 months status post right triceps tendon repair. Continues to work with occupational therapy to regain his strength. He states he is still unable to perform a pushup or crawl in attics spaces which is required at work. 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 He has full ROM of elbow without pain. Mild discomfort with full extension. He can supinate or pronate without pain. NVI. Assessment & Plan Assessment & Plan (1) Rupture of right triceps tendon: Code(s): S46.311A - Strain of muscle, fascia and tendon of triceps, right arm, initial encounter Category: Medical Plan: He continues to have some weakness with triceps extension therefore we will continue to have him work with occupational therapy to reach his full potential with strength. He will continue with light duty restrictions lifting no more than 20 lb. He will see me back in 6 weeks, sooner if needed. Coding Level of Care Code Global (08413) Diagnoses Rupture of right triceps tendon S46.311A
== END 2024-05-14 15:15 | disposition home or self-care (01) ==
PROVIDERS: Visit Provider Physician Assistant
DX: S46.311A Strain of muscle, fascia and tendon of triceps, right arm, initial encounter (principal)
CPT/HCPCS: 99024

== ENCOUNTER → 2024-05-14 15:00 | Outpatient (BNVA) | payer OTHER, SELFPAY | PROVIDERS: Visit Provider Physician Assistant | DX: S46.311D Strain of muscle, fascia and tendon of triceps, right arm, subsequent encounter (principal) | CPT/HCPCS: 99212 ==

== ENCOUNTER 2024-06-25 14:58 | Outpatient (AMB) | payer OTHER, SELFPAY ==
--- NOTE | 2024-06-25 15:33 | A.OFFVIS_ITS ---
Intake Visit Reasons: OV- 6wk f/u Rt tricep tendon repair Intake Note: All is a 38 year left hand dominant old male who presents today for a post operative visit, right Tricep tendon repair, DOS 02/21/24. No hx of injury. Patient reports he had been feeling discomfort that started a couple days ago. He notices when he is working out he feels sharp pain. Allergies No Known Allergies [No Known Allergies*] Allergy (Verified 06/25/24 15:46) HPI HPI OV- 6wk f/u Rt tricep tendon repair: Details: 38-year-old gentleman returns to the office today status post right triceps tendon repair on 02/21/[address] Rojas. Was doing well. He has continued restrictions at work no lifting more than 20 lb. States he went to push off and felt some discomfort around the elbow. He has no swelling but he states he has some continued weakness with throwing type activities. 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 He has full ROM of elbow without pain. Mild discomfort with pushing off. He can supinate or pronate without pain. NVI. Assessment & Plan Assessment & Plan (1) Rupture of right triceps tendon: Code(s): S46.311A - Strain of muscle, fascia and tendon of triceps, right arm, initial encounter Category: Medical Plan: He was doing well up until recently. I do not feel any palpable defects along the triceps. I encouraged him to avoid any strenuous activity of the right tricep for the next 2 weeks to allow this to rest. He is inquiring about sw inging a baseball bat. At this time I would ask that he avoid activities that include pushing pulling lifting or carrying with the right upper extremity for the next 2 weeks beyond what he does at work as he states working is primarily flexion of the arm and not extension putting stress on the tricep. At that time I would like him to see Dr. Rojas so he can further assess him to see if he is clear to participate in all activities. I did explain to the patient however that he may have continued weakness in that tricep for up to a year after surgery given the nature of the injury. Coding Level of Care Code Est Pt Level 3 (67862) Complex EM visit Add On G2211 Diagnoses Rupture of right triceps tendon S46.311A
== END 2024-06-25 16:10 | disposition home or self-care (01) ==
PROVIDERS: Visit Provider Physician Assistant
DX: S46.311A Strain of muscle, fascia and tendon of triceps, right arm, initial encounter (principal)
CPT/HCPCS: 99213; G2211

== ENCOUNTER → 2024-06-25 14:58 | Outpatient (BNVA) | payer OTHER, SELFPAY | PROVIDERS: Visit Provider Physician Assistant | DX: S46.311D Strain of muscle, fascia and tendon of triceps, right arm, subsequent encounter (principal) | CPT/HCPCS: 99212 ==

== ENCOUNTER 2024-07-12 14:36 | Outpatient (AMB) | payer OTHER, SELFPAY ==
[2024-07-12 14:58] VITALS: BMI 36.0
--- NOTE | 2024-07-12 14:58 | A.OFFVIS_ITS ---
Vital Signs 07/12/24 14:58 Height 5 ft 7 in Weight 230 lb BMI 36.0 Intake Visit Reasons: OV - Right Tricep tendon repair, DOS 02/21/24 Intake Note: All is a 38 year left hand dominant old male who presents today for a post operative visit about 6months, Right Tricep tendon repair, DOS 02/21/24. States he continues to have weakness in his arm. Allergies No Known Allergies [No Known Allergies*] Allergy (Verified 06/25/24 15:46) HPI HPI OV - Right Tricep tendon repair, DOS 02/21/24: Details: All is a 38 year left hand dominant old male who presents today for a post operative visit about 6months, Right Tricep tendon repair, DOS 02/21/24. States he continues to have weakness in his arm. 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 Assessment & Plan Assessment & Plan (1) Rupture of right triceps tendon: Code(s): S46.311A - Strain of muscle, fascia and tendon of triceps, right arm, initial encounter Category: Medical Plan: Doing okay but still feels weak. I think he is overdoing it. I made a referral to OT and would like to encourage him to continue gradual PT with strengthening. Follow up in 3 months. Orders: Orders OT Evaluation and Treatment Today S46.311A - Strain of muscle, fascia and tendon of triceps, right arm, initial encounter Coding Level of Care Code Est Pt Level 3 (50211) Diagnoses Rupture of right triceps tendon S46.311A
== END 2024-07-12 15:22 | disposition home or self-care (01) ==
LOC: HO.HOS 14:36
PROVIDERS: Visit Provider Orthopaedic Surgery
DX: S46.311A Strain of muscle, fascia and tendon of triceps, right arm, initial encounter (principal)
CPT/HCPCS: 99213

== ENCOUNTER → 2024-07-12 14:36 | Outpatient (BNVA) | payer OTHER, SELFPAY | PROVIDERS: Visit Provider Orthopaedic Surgery | DX: R53.1 Weakness (principal); S46.311D Strain of muscle, fascia and tendon of triceps, right arm, subsequent encounter; X58.XXXD Exposure to other specified factors, subsequent encounter; Z98.890 Other specified postprocedural states | CPT/HCPCS: 99212 ==

== ENCOUNTER 2024-07-12 15:30 | Outpatient (RCR) | payer OTHER, SELFPAY ==
--- NOTE | 2024-06-05 10:51 | MHC.OT.OEV ---
[address] [phone] F: [phone] Occupational Therapy Evaluation Patient Name: All Garcia Diagnosis: Rupture of right triceps tendon Date of Onset: Date of Surgery: 02/21/24 Attending Provider: Tripp Hamilton Prescribed Treatment: Follow Up Appointment: History of Current Condition: Patient is a 38-year-old male who returns to OT 3months post (R)tricep repair. He was referred to skilled OT by physician for continued strengthening. 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 He reports a 0/10 pain at rest and 4/10 with heavy lifting. His main objective is to be able to do a push up and return to work full duty. Significant Medical History: Precautions/Contraindications: lifting no more than 20lbs. 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 (I)ADLs/IADLs Plays baseball Living Situation, Family and/or Social Support: Lives with girlfriend and 3 children Current Level of Function and Occupation Self Care, Employment, Leisure: Light duty (I)ADLs, mod (A) IADLS Sleep: Driving: Vision: Balance: Pain Assessment Pain Score: 4 Pain Scale Used: Numeric (0 - 10) Pain Location and Description: 4/10 with heavy lifting Aggravating Factors: Alleviating Factors: Skin and Soft Tissue Assessment Skin and Soft Tissue: Comments: Skin intact scar moveable and soft no edema present Nerve assessment Ulnar Nerve: Median Nerve: Radial Nerve: Comments: Sensory Assessment Temperature: Light Touch: Proprioception: Vibration: Comments: Edema Assessment Upper Extremity: Lower Extremity: Comments: Dexterity Assessment Dexterity: Comments: WFL Special Tests Comments: AROM(PROM) Strength Cervical Cervical Flexion: Cervical Extension: Cervical Lateral Flexion: Cervical Rotation: Comments: WFL Shoulder Flexion: Extension: Abduction: Internal Rotation: External Rotation: Comments: WFL Flexion: Extension: Abduction: Internal Rotation: External Rotation: Comments: WFL Elbow Flexion: Extension: Pronation: Supination: Comments: WFL Flexion: Extension: Pronation: Supination: Comments: WFL Wrist Flexion: Extension: Ulnar Deviation: Radial Deviation: Comments: WFL Flexion: Extension: Ulnar Deviation: Radial Deviation: Comments: WFL Thumb Thumb CMC Flexion: Thumb MCP Flexion: Thumb IP Flexion: Radial Abduction: [place] Abduction: [place] (Kapandji 0-10): Comments: WFL Digits Index MCP: PIP: DIP: Long MCP: PIP: DIP: Ring MCP: PIP: DIP: Small MCP: PIP: DIP: Comments: WFL Gross Grasp: (R)93lbs., (L)111lbs. 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 Barriers to Learning: Readiness for Learning: Who was educated? 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 Quick DASH= 4.5% indicating patient's perceived impairment of UE during self care tasks. Per physician request patient will receive a short course of OT intervention in order to focus on increasing strength of the (R)UE in preparation for return to work full duty. STG Duration: 2 weeks Short Term Goals: Patient will increase (R)pizza hut assistant strength to 100lbs. LTG Duration: 4 weeks [facility] Goals: Patient will be (I) in HEP Frequency and Duration: The patient will be seen 2x a week for 4 weeks Treatment Plan: Therapeutic Exercise Therapeutic Activity Home Exercise Program Patient Education Edema Control ADL Training Ultrasound NMES Iontophoresis Paraffin Fluidotherapy MHP Cold Packs Joint Mobilization Soft Tissue Mobilization Kinesiotaping Other (see comments) skilled OT eval and treat Electronically Signed By: KYLE Vega/Jose, CLT Reviewed/agree with student documentation: Therapist: Please sign and return to therapist, Thank you for your referral.
--- NOTE | 2024-07-12 15:47 | MHC.OT.DC ---
[address] [phone] F: [phone] Occupational Therapy Discharge Note Patient Name: All Garcia Provider: Tripp Hamilton Diagnosis: Rupture of right triceps tendon Date of Surgery: 02/21/24 Date of Evaluation: 06/05/24 Date of Discharge: Treatments to Date: 7 Cancellations to Date: No Shows to Date: Discharge Status: Improved Function Independent with HEP Discharge Summary: Patient is in d/c from skilled therapy as he achieved his maximal potential with OT. He will now be going to [facility]. Thank you for your referral, patient was pleasure to work with. Electronically Signed By: KYLE Vega/Jose, CLT Reviewed/agree with student documentation: Therapist: Please Sign and return to therapist, thank you for your referral.
== END 2024-08-09 10:49 | disposition home or self-care (01) ==
LOC: HO.OT 15:30
PROVIDERS: Visit Provider Physician Assistant
DX: S46.311D Strain of muscle, fascia and tendon of triceps, right arm, subsequent encounter (principal)
CPT/HCPCS: 97110; 97165; 97535

== ENCOUNTER 2024-08-27 14:16 | Outpatient (AMB) | payer OTHER, SELFPAY ==
--- NOTE | 2024-08-27 14:18 | A.OFFVIS_ITS ---
Intake Visit Reasons: OV - Right Tricep tendon repair, DOS 02/21/24 Intake Note: All is a 38 year left hand dominant old male who presents today for a post operative visit about 6months, Right Tricep tendon repair, DOS 02/21/24. At his last visit it was discussed that he may be over doing it, he was referred to OT Allergies No Known Allergies [No Known Allergies*] Allergy (Verified 06/25/24 15:46) HPI HPI OV - Right Tricep tendon repair, DOS 02/21/24: Details: Seven months status post right triceps repair. He continues to be improving. He states he is getting stronger. He has no pain. He continues to have restrictions for work with no lifting over 30 lb. 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 Strength is diminished compared to his left triceps but triceps feels intact with no palpable defect at the triceps insertion. Assessment & Plan Assessment & Plan (1) Rupture of right triceps tendon: Code(s): S46.311A - Strain of muscle, fascia and tendon of triceps, right arm, initial encounter Category: Medical Plan: Continue strengthening. Continue light duty at work with no lifting over 30 lb. Follow up 3 months. Coding Level of Care Code Est Pt Level 3 (33971) Diagnoses Rupture of right triceps tendon S46.311A
== END 2024-08-27 14:22 | disposition home or self-care (01) ==
LOC: HO.HOS 14:17
PROVIDERS: Visit Provider Orthopaedic Surgery
DX: S46.311A Strain of muscle, fascia and tendon of triceps, right arm, initial encounter (principal)
CPT/HCPCS: 99213

== ENCOUNTER → 2024-08-27 14:16 | Outpatient (BNVA) | payer OTHER, SELFPAY | PROVIDERS: Visit Provider Orthopaedic Surgery | DX: S46.311D Strain of muscle, fascia and tendon of triceps, right arm, subsequent encounter (principal); X58.XXXD Exposure to other specified factors, subsequent encounter; Z98.890 Other specified postprocedural states | CPT/HCPCS: 99212 ==

== ENCOUNTER → 2024-11-12 08:03 | Outpatient (BNV) | payer OTHER, SELFPAY | PROVIDERS: Emergency Provider Emergency Medicine; Visit Provider Radiology Diagnostic Radiology | DX: M25.531 Pain in right wrist (principal); X50.0XXA Overexertion from strenuous movement or load, initial encounter | CPT/HCPCS: 73110 ==

== ENCOUNTER 2024-11-12 08:37 | Emergency (ER) | payer OTHER, SELFPAY ==
--- NOTE | ~2024-11-12 | XR_ITS ---
EXAMINATION: XR WRIST 3 OR MORE VIEWS RIGHT HISTORY: PAIN R WRIST AFTER HEAVY LIFTING COMPARISON: There are no prior studies available for comparison. FINDINGS: Four views of the right wrist, including a scaphoid view are submitted. Osseous mineralization is normal. A well-corticated osseous density seen adjacent to the styloid which may be the result of old trauma. No acute fracture or dislocation is seen. The joint spaces are preserved. The soft tissues are unremarkable. XR/XR wrist RT min 3V IMPRESSION: No evidence of acute fracture of the right wrist. Electronically signed by: Lawrenec Escalera MD 11/12/2024 09:11 AM EDT
[2024-11-12 08:38] VITALS: BP 145/85; PULSE 85; RESP 16; TEMP 36.6; O2SAT 100; BMI 37.1
--- OUTSIDE RECORDS SUMMARY | 2024-11-12 08:53 | XMS_ITS | Clinical Summary ---
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 Role Phone Unavailable Primary Care Provider Unavailabl e Encounters Date Type Department Care Team Description 10/30/2024 Telephone [facility] MEDICINE [address] [place] [address] Demetri Pabon MD 10/10/2024 Telephone [facility] MEDICINE [address] [place] [address] Demetri Pabon MD from Last 3 Months Social History Tobacco Use Types Packs/Day Years Used Date Smoking Tobacco: Never Assessed Sex and Gender Information Value Date Recorded Sex Assigned at Not on file Legal Sex Male 9:39 AM EDT Gender Identity Not on file Sexual Orientation Not on file Plan of Treatment Upcoming Encounters Date Type Department Care Team (Late st Contact Info) Description 01/23/2025 9:30 AM EDT Office Visit [facility] MEDICINE [address] [place] [address] Leah Michelle MD [address] [place] [address] Health Maintenance Due Date Last Done Comments Depression Screening 1986 HIV Screening 1986 Lipid Panel 1986 SDOH Screening 1986 Disability Screening 1986 Alcohol/Substance Use Screening 1998 Tobacco Screening 1998 Family Planning (PISQ) 2001 HPV Vaccines (1 - Male 3-dos e series) 2001 Hepatitis C Screening 2004 DTaP/Tdap/Td Vaccines (1 - Tdap) 2005 Hepatitis B Vaccines (1 of 3 - 19+ 3-dose series) 2005 COVID-19 Vaccine ( - 2023-2 5 season) 2023 10/04/2020, 09/01/2020 Influenza Vaccine (#1) 2024 Zoster Vaccines (1 of 2) 2036 RSV Patients and Patients Aged 60 years or older (1 - 1-dose 75+ series) 2061 HIB Vaccines Aged Out No longer eligi ble based on patient's age to complete this topic Hepatitis A Vaccines Aged Out No long er eligible based on patient's age to complete this topic IPV Vaccines Aged Out No longer eligi ble based on patient's age to complete this topic Meningococcal B Vaccine Aged Out No l onger eligible based on patient's age to complete this topic Meningococcal Vaccine Aged Out No michelle vitaliy eligible based on patient's age to complete this topic Pneumococcal Vaccine: Pediatrics (0 to 5 Years) and At-Risk Patients (6 to 49) Years Aged Out No longer eligible b ased on patient's age to complete this topic RSV under 20 months Aged Out No longe r eligible based on patient's age to complete this topic Rotavirus Vaccines Aged Out No longer eligible based on patient's age to complete this topic Insurance [facility] [place]: [facility] [address] [place] [address]
--- NOTE | 2024-11-12 09:29 | ED_ITS ---
HPI - Extremity Problem General Chief complaint: Extremity Injury, Upper Stated complaint: Right wrist pain Time Seen by Provider: 11/12/24 08:51 Source: patient and RN notes reviewed Mode of arrival: ambulatory Limitations: no limitations History of Present Illness ED Provider: Zaria Bennett PA-C HPI Narrative: This is a 39-year-old male who presents emergency department with concerns of right wrist pain for the last 5 weeks. Patient reports that over the last 5 weeks he has had pain in his right wrist. He states that he performs repetitious movements at work, and also states that several weeks ago he grabbed a ladder and felt a snapping sensation. He states that he has had pain since. No numbness, tingling or weakness. He is 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, however primarily for right-hand dominant. He has been taking Tylenol for his pain which has provided him with some relief. No other complaints or concerns at this time. MD Complaint: extremity pain Pain Consistency: constant Related Data Previous Rx's ?Medication ?Instructions ?Recorded acetaminophen 500 mg tablet 500 - 1,000 mg (1 - 2 x 50 0 mg) PO 11/12/24 (Tylenol Extra Strength) Q6H PRN pain #30 tabs ibuprofen 600 mg tablet 600 mg PO Q6H PRN pain #30 t abs 11/12/24 Allergies Allergy/AdvReac Type Severity Reaction Status Date / Time No Known Allergies (No Known Allergy Verified 11/12/24 08:41 Allergies*) Review of Systems Review of Systems: Yes all other systems are reviewed and are negative Constitutional: Constitutional: Reports as per [facility] Past Medical History Medical History No known health problems Surgical History [place] teeth extracted Social History Social History Patient Tobacco Use Status: Never used Tobacco Advance Directives: No Advance Directives Information Provided: Yes Current occupational status: employed 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, 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 Physical Exam Vital Signs: Vital Signs: Last Vital Signs Temp 97.9 F 11/12/24 09:45 Pulse 85 11/12/24 09:45 Resp 16 11/12/24 09:45 BP 145/85 H 11/12/24 09:45 Pulse Ox 100 11/12/24 09:45 O2 Del Method Room Air 11/12/24 09:45 BMI result Body Mass Index 37.1 Const: General: cooperative, comfortable and no acute distress Orientation/consciousness: patient oriented x3 Limitations: no limitations HEENT: Head: Yes normal to inspection, Yes normocephalic and Yes atraumatic Ears: hearing grossly normal bilaterally General nose exam: Normal external nose present Face and sinus: Yes normal facial exam Mouth: Normal oral and palatal mucosa present, oropharynx normal and moist mucous membranes Throat: Yes posterior oropharynx normal Eyes: General: appearance normal, both eyes and all related structures Eyelids: Yes eyelids normal Conjunctivae: conjunctivae normal Sclerae: sclerae normal Pupils: Equal, round and reactive pupils present EOM: EOMs intact bilaterally Neck: Neck: Yes normal visual inspection, Yes full ROM and Yes no lymphadenopathy Lymphatic: no lymphadenopathy noted Chest: Chest palpation & inspection: normal inspection of the chest Resp: Effort & Inspection: normal respiratory effort and able to speak in complete sentences Auscultation: clear to auscultation bilaterally, no crackles, no rales, no rhonchi and no wheezes Cardio: Rate: regular rate Rhythm: regular rhythm Heart sounds: S1 normal heart sound present and S2 normal heart sound present GI: Inspection: Yes normal to inspection Skin: General skin exam: no rashes or lesions noted Trauma: no lacerations or abrasions Wounds: no wounds Neuro: General: patient oriented x3 and moves all extremities Cranial nerves: Yes Equal, round and reactive pupils present Extrem: Other: Right wrist with no obvious bony deformity or swelling, patient has tenderness palpation along the distal ulna, with no obvious bony deformity or swelling. No overlying erythema or warmth, full ROM of the wrist without difficulty. Strong radial pulse. General: Yes normal to inspection Right upper extremity: normal to inspection Left upper extremity: normal to inspection Right lower extremity: normal to inspection Left lower extremity: normal to inspection Medical Decision Making Medical Decision Making MDM Narrative: This is a 39-year-old male who presents emergency department with complaints of right wrist pain ongoing for the last 5 weeks. Believes that he grabbed a ladder which caused him to have pain immediately in his right wrist. He has been taking Tylenol for his symptoms which has provided him with minimal relief. On arrival, blood pressure mildly elevated 145/85, all other vital signs within normal limits. X-rays were obtained, revealing no acute bony abnormality. There is a well corticated osseous density seen adjacent to the styloid which may be the result of old trauma - given this finding, I am recommending following up with ortho as patient does not have any new fracture however given pain and ongoing symptoms, should follow-up. Discharged with conservative measures as well as follow-up with Orthopedics. Given strict return precautions. Patient stable for discharge. Differential Diagnosis Differential Diagnoses: The differential diagnosis associated with the presentation includes Fracture, contusion, sprain, strain, dislocation Radiology Impression Discussion of test interpretation with radiology: I have reviewed the radiologist's reading. Radiologist Impression: EXAMINATION: XR WRIST 3 OR MORE VIEWS RIGHT HISTORY: PAIN R WRIST AFTER HEAVY LIFTING COMPARISON: There are no prior studies available for comparison. FINDINGS: Four views of the right wrist, including a scaphoid view are submitted. Osseous mineralization is normal. A well-corticated osseous density seen adjacent to the styloid which may be the result of old trauma. No acute fracture or dislocation is seen. The joint spaces are preserved. The soft tissues are unremarkable. XR/XR wrist RT min 3V IMPRESSION: No evidence of acute fracture of the right wrist. Electronically signed by: Lawrence Escalera MD 11/12/2024 09:11 AM EDT Discharge Plan Discharge Clinical Impression: Wrist pain, right Patient Disposition: Home, Self-Care Instructions: Wrist Injury (ED) Additional Instructions: You were seen in the emergency department due to wrist pain. Your x-rays do not show any broken bones. You need to follow-up with the email deployment specialist for further management. Rest, ice, and use wrist splint for comfort. Alternating between ibuprofen and Tylenol can be helpful for your pain. Taking ibuprofen 600 mg every 6 hours, 2 hours later take Tylenol 500 to a 1000 mg. Alternating between these medications can provide you with good relief. If any new or worsening symptoms occur including but not limited to severe pain, decreased range of motion of your wrist, decreased sensation, please return for re-evaluation. Prescriptions: New ibuprofen 600 mg tablet 600 mg PO Q6H PRN (Reason: pain) Qty: 30 0RF acetaminophen [Tylenol Extra Strength] 500 mg tablet 500 - 1,000 mg PO Q6H PRN (Reason: pain) Qty: 30 0RF Referrals: [facility] [Provider Group] Stand Alone Forms: Work/School Release Interventions: ED Discharge Assessment Last Done: 11/12/24 09:45 Print Language: Cambodian
[2024-11-12 09:45] VITALS: BP 145/85; PULSE 85; RESP 16; TEMP 36.6; O2SAT 100
== END 2024-11-12 09:47 | disposition home or self-care (01) ==
PROVIDERS: Emergency Provider Emergency Medicine
DX: M25.531 Pain in right wrist (principal)
CPT/HCPCS: 73110; 99282; 99283

== ENCOUNTER 2024-11-26 14:31 | Outpatient (AMB) | payer OTHER, SELFPAY ==
--- OUTSIDE RECORDS SUMMARY | 2024-11-26 14:34 | XMS_ITS | Clinical Summary ---
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 Role Phone Unavailable Primary Care Provider Unavailabl e Encounters Date Type Department Care Team Description 10/30/2024 Telephone [facility] [address] [place] [address] Demetri Pabon MD 10/10/2024 Telephone [facility] [address] [place] [address] Demetri Pabon MD from Last 3 Months [...] Description 01/23/2025 9:30 AM EDT Office Visit [facility] [address] [place] [address] Leah Michelle MD [address] [place] [address] Health Maintenance Due Date Last Done Comments [...] age to complete this topic Insurance [facility] [place] Address: [facility] [id number] [place] [address]
--- NOTE | 2024-11-26 14:40 | A.OFFVIS_ITS ---
Intake Visit Reasons: OV - Right Tricep tendon repair, DOS 02/21/24 Intake Note: All is a 38 year left hand dominant old male who presents today for a post operative visit about 6months, Right Tricep tendon repair, DOS 02/21/24. At his last visit he was instructed to continue on light duty at work with no lifting over 30 lb - He reports that he is no longer with this employer. 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 Patient reports that he has had increased wrist on the ulnar aspect of the right wrist with ROM. Denies numbness and tingling. Allergies No Known Allergies (No Known Allergies*) Allergy (Verified 11/26/24 14:41) HPI HPI OV - Right Tricep tendon repair, DOS 02/21/24: Details: All is now 9 months status post right triceps tendon repair. He is doing well. He has no pain. He does complain of some right wrist ulnar-sided pain. 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 5/5 strength triceps. No palpable defect. Incision clean dry and intact. Assessment & Plan Assessment & Plan (1) Rupture of right triceps tendon: Code(s): S46.311A - Strain of muscle, fascia and tendon of triceps, right arm, initial encounter Category: Medical Plan: Status post triceps repair. I believe he has reached MMI. He is strong without pain. He may return to work without restrictions. No further follow up required. He does have some ulnar-sided wrist pain and would like a referral to hand specialist. Coding Level of Care Code Est Pt Level 3 (05973) Diagnoses Rupture of right triceps tendon S46.311A
== END 2024-11-26 15:18 | disposition home or self-care (01) ==
LOC: HO.HOS 14:31
PROVIDERS: Visit Provider Orthopaedic Surgery
DX: S46.311A Strain of muscle, fascia and tendon of triceps, right arm, initial encounter (principal)
CPT/HCPCS: 99213

== ENCOUNTER → 2024-11-26 14:31 | Outpatient (BNVA) | payer OTHER, SELFPAY | PROVIDERS: Visit Provider Orthopaedic Surgery | DX: S46.311A Strain of muscle, fascia and tendon of triceps, right arm, initial encounter (principal); Z98.890 Other specified postprocedural states | CPT/HCPCS: 99212 ==

== ENCOUNTER 2025-01-01 08:22 | Outpatient (AMB) | payer OTHER, SELFPAY ==
--- NOTE | 2025-01-01 08:32 | A.OFFVIS_ITS ---
Vital Signs 01/01/25 08:34 Height 5 ft 6 in Weight 230 lb BMI 37.1 Intake Visit Reasons: ER: Right Wrist Pain Intake Note: All is a 39 year old 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 male who presents today for an ED follow up to evaluate Right Wrist Pain. Patient presented to [facility] ED on 11/12/24 complaining of 5 weeks of wrist pain after grabbing a ladder and feeling a snapping sensation. He was prescribed Ibuprofen and Tylenol, and given a Velcro wrist brace. Today, patient reports for the past 2 months he has been experiencing a sharp sting on the ulnar and volar aspect of the right wrist, primarily when bending the wrist down. Patient continues playing baseball which exacerbates the pain, managing with Tylenol 1,000 mg PRN. 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 Denies numbness or tingling. Status post Right Tricep tendon repair, DOS 02/21/24. Allergies No Known Allergies (No Known Allergies*) Allergy (Verified 01/01/25 08:34) HPI HPI ER: Right Wrist Pain: Details: All is a 39 year old 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 male who presents today for an ED follow up to evaluate Right Wrist Pain. Patient presented to [facility] ED on 11/12/24 complaining of 5 weeks of wrist pain after grabbing a ladder and feeling a snapping sensation. He was prescribed Ibuprofen and Tylenol, and given a Velcro wrist brace. Today, patient reports for the past 2 months he has been experiencing a sharp sting on the ulnar and volar aspect of the right wrist, primarily when bending the wrist down. Patient continues playing baseball which exacerbates the pain, managing with Tylenol 1,000 mg PRN. 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 Denies numbness or tingling. Status post Right Tricep tendon repair, DOS 02/21/24. 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 Neuro: Normal sensation of the tips of all digits of the right hand at this time Vascular: Cap refill brisk Pain: Minimal tenderness to palpation ulnar and volar aspect of the right wrist ROM: Patient is able to flex and extend the right wrist fully and without difficulty Pain with resisted flexion and hyperextension of the right wrist in the ulnar aspect Skin: No lacerations or abrasions. General: No ecchymosis, erythema, or evidence of infection. Psych: Appears grossly normal Affect normal Attitude cooperative Results Reviewed Results Reviewed: X-rays obtained in the office today and independently reviewed by me, Diaz Artis PA-C, demonstrate old, well corticated avulsion fracture of the ulnar styloid with no acute fracture or bony abnormality noted. Assessment & Plan Assessment & Plan (1) Flexor carpi ulnaris tendinitis: Code(s): M77.8 - Other enthesopathies, not elsewhere classified Category: Medical (2) Pain of ulnar side of wrist: Code(s): M25.539 - Pain in unspecified wrist Category: Medical Plan 1. Flexor carpi ulnaris tendinitis Patient is educated about this condition Patient is educated about the typical treatment course Patient is provided with a Velcro wrist splint to wear when his wrist is particularly bothering him Patient is also referred to occupational therapy for range of motion and strengthening of the right wrist in the setting of FCU tendinitis Patient is educated that if proximally 6-8 weeks after starting OT, he notices little to no improvement, he should call us for re-evaluation and discussion of potential other treatment options, including injections Patient understands this in his amenable to this plan Follow-up as needed Orders: Orders XR wrist RT w scaphoid 01/01/25 M79.641 - Pain in right hand OT Evaluation and Treatment 01/01/25 M25.539 - Pain in unspecified wrist, M77.8 - Other enthesopathies, not elsewhere classified Coding Level of Care Code New Pt Level 3 (42766) Diagnoses Flexor carpi ulnaris tendinitis M77.8 Pain of ulnar side of wrist M25.539
[2025-01-01 08:34] VITALS: BMI 37.1
--- OUTSIDE RECORDS SUMMARY | 2025-01-01 09:23 | XMS_ITS | Clinical Summary ---
Author Organization [employer] Address [address] [facility] [address] [place] [address] Care Team Providers Care Practice Nurse Name Role Phone Unavailable Primary Care Provider Unavailabl e Encounters Date Type Department Care Team Description 10/30/2024 Telephone [facility] [address] [place] [address] Demetri Pabon MD 10/10/2024 Telephone [facility] [address] [place] [address] Demetri Pabon MD from Last 3 Months [...] Description 01/23/2025 9:30 AM EDT Office Visit [facility] [address] [place] [address] Leah Michelle MD [address] [place] [address] Health Maintenance Due Date Last Done Comments [...] 3-dose series) 2005 COVID-19 Vaccine ( - 2024-2 6 season) 2024 10/04/2020, 09/01/2020 Influenza Vaccine (#1) 2024 Zoster [...] age to complete this topic Insurance [facility] Address: [facility] [address] [place] [address]
== END 2025-01-01 09:08 | disposition home or self-care (01) ==
LOC: HO.HOS 08:23
DX: M77.8 Other enthesopathies, not elsewhere classified (principal); M25.539 Pain in unspecified wrist
CPT/HCPCS: 99203

== ENCOUNTER 2025-01-01 08:22 | Outpatient (REF) | payer OTHER, SELFPAY ==
--- NOTE | ~2025-01-01 | XR_ITS ---
EXAMINATION: XR WRIST, RIGHT CLINICAL INFORMATION: M79.641 - Pain in right hand COMPARISON: November 12, 2024. TECHNIQUE: PA, lateral, and oblique views of the right wrist. Scaphoid projection FINDINGS: There is a well-corticated calcification adjacent to the styloid process of the ulna. The carpal bones are intact with normal alignment. Scaphoid is intact without lytic or blastic lesions. Distal radius is intact. The metacarpal bones are intact. No subcutaneous emphysema. XR/XR wrist RT w scaphoid IMPRESSION: No acute fracture or dislocation. Probable old trauma, styloid processes, right ulna. Electronically signed by: Baudilio Wagner MD 01/01/2025 08:41 AM EDT
== END 2025-01-01 08:23 | disposition home or self-care (01) ==
LOC: HO.HOSX 08:22
DX: M77.8 Other enthesopathies, not elsewhere classified (principal); M25.531 Pain in right wrist; M79.641 Pain in right hand
CPT/HCPCS: 73110; 99202

== ENCOUNTER → 2025-01-01 08:28 | Outpatient (BNV) | payer OTHER, SELFPAY | PROVIDERS: Visit Provider Radiology Diagnostic Radiology | DX: M79.641 Pain in right hand (principal) | CPT/HCPCS: 73110 ==